=== PATIENT | female | born 1970 | race Caucasian/White ===

== ENCOUNTER 2018-01-30 21:37 | Inpatient (IN) | payer OTHER ==
[2018-01-30 23:34] LABS: ABNORMAL IP MESSAGE 1; HEMATOCRIT 36.2 % (37.0-47.0); HEMOGLOBIN 12.3 g/dl (12.0-16.0); MEAN CORPUSCULAR HEMOGLOBIN 31.8 pg (29.0-33.0); MEAN CORPUSCULAR VOLUME 93.5 fl (82.0-101.0); MEAN PLATELET VOLUME 12.6 fl (7.4-10.4); PLATELET COUNT 114 10^3/UL (140-415); RED BLOOD COUNT 3.87 10^6/ul (4.20-5.40); RED CELL DISTRIBUTION WIDTH 12.6 % (11.5-14.5)
[2018-01-30 23:34] LABS: WHITE BLOOD COUNT 8.2 10^3/ul (4.8-10.8)
[2018-01-30 23:37] LABS: ADD MAN DIFF? YES; POSITIVE DIFF @See below
[2018-01-30 23:40] LABS: ADD UMIC YES; UR ASCORBIC ACID NEGATIVE (NEGATIVE); UR BACTERIA FEW /HPF (NONE SEEN); UR BILIRUBIN (Dip) NEGATIVE (NEGATIVE); UR BLOOD (Dip) 1+ mg/dL (NEGATIVE); UR CLARITY CLOUDY (CLEAR); UR COLOR YELLOW (YELLOW); UR GLUCOSE (Dip) NEGATIVE (NEGATIVE); UR KETONES (Dip) NEGATIVE (NEGATIVE); UR LEUKOCYTE ESTERASE (Dip) NEGATIVE Leu/ul (NEGATIVE); UR NITRITE (Dip) NEGATIVE (NEGATIVE); UR RBC 0 /HPF (0-5); UR SPECIFIC GRAVITY (Dip) 1.016 (1.003-1.030); UR SQUAMOUS EPITHELIAL CELL MODERATE /HPF (FEW); UR TOTAL PROTEIN (Dip) 1+ mg/dl (NEGATIVE); UR UROBILINOGEN (Dip) NEGATIVE (NEGATIVE); UR WBC 10 /HPF (0-5)
[2018-01-30] MEDS: morphine 4 MG/ML VIAL IV (23:41)
[2018-01-30] MEDS: ONDANSETRON 4 MG INJ IV (23:41)
[2018-01-30] MEDS: PIPER-TAZO 3.375 GM IV (PMX) 100 ML IVPB (23:41)
[2018-01-30] MEDS: SODIUM CHLORIDE 0.9% 1L BAG IV* (23:43)
[2018-01-30 23:54] LABS: INR 1.05; PROTIME 13.8 Sec (11.9-14.9); PT RATIO 1.1
[2018-01-30 23:55] LABS: ALANINE AMINOTRANSFERASE 26 IU/L (13-69); ALBUMIN 3.5 g/dl (3.3-4.9); ALBUMIN/GLOBULIN RATIO 1.16; ALKALINE PHOSPHATASE 64 IU/L (42-121); ANION GAP 13 (8-16); ASPARTATE AMINO TRANSFERASE 18 IU/L (15-46); BILIRUBIN,INDIRECT 0.3 mg/dl (0-1.1); BILIRUBIN,TOTAL 0.3 mg/dl (0.2-1.3); BLOOD UREA NITROGEN 29 mg/dl (7-20); CALCIUM 8.6 mg/dl (8.4-10.2); CARBON DIOXIDE 24 mmol/L (21-31); CHLORIDE 100 mmol/L (97-110); CREATININE 0.98 mg/dl (0.44-1.00); GLUCOSE 130 mg/dl (70-220); POTASSIUM 3.5 mmol/L (3.5-5.1); SODIUM 133 mmol/L (135-144); TOTAL PROTEIN 6.5 g/dl (6.1-8.1)
[2018-01-30 23:55] LABS: LACTIC ACID 1.3 mmol/L (0.5-2.0)
[2018-01-31] MEDS: VANCOMYCIN 1 GM (PMX) 250 ML IVPB (00:04)
[2018-01-31 00:06] LABS: TROPONIN-I < 0.010 ng/ml (0.000-0.120)
[2018-01-31 00:52] LABS: BAND NEUTROPHILS #M 2.7 10^3/ul (0.0-0.6); BAND NEUTROPHILS % (M) 33 % (0-4); LYMPHOCYTES #M 0.4 10^3/ul (0.8-2.9); LYMPHOCYTES % (M) 5 % (15-51); METAMYELOCYTES #M 0.4 10^3/ul (0.0-0.0); METAMYELOCYTES %M 6 % (0-0); MONOCYTE #M 0.2 10^3/ul (0.3-0.9); MONOCYTES % (M) 3 % (0-11); PLATELET ESTIMATE DECREASED; SEG NEUT #M 4.6 10^3/ul (1.6-7.5); SEGMENTED NEUTROPHILS (M) % 53 % (39-77); SMUDGE%M 11 % (0-0)
[2018-01-31] MEDS ORDERED: ONDANSETRON 4 MG INJ IV (02:00)
[2018-01-31] MEDS ORDERED: NACL 0.9% 3 ML SYG IV (02:00)
[2018-01-31] MEDS ORDERED: ALBUTEROL/IPRATROPIUM (NEB) 3 ML AMP HHN (02:00)
[2018-01-31] MEDS: SOD CHLORIDE 0.9% 1,000 ML IV ×5 (02:53→22:31)
[2018-01-31] MEDS ORDERED: VANCOMYCIN IV PER PHARMACY XX (04:00)
[2018-01-31] MEDS: morphine 4 MG/ML VIAL IV (05:05)
[2018-01-31] MEDS: CEFEPIME 1GM/50 ML (PMX) 50 ML IVPB ×2 (05:06→20:11)
[2018-01-31] MEDS: HEPARIN 5,000 UNIT/0.5 ML VIAL SC ×2 (08:23→20:18)
[2018-01-31] MEDS: VANCOMYCIN 750 MG in SOD CHLORIDE 0.9% 150 ML IVPB (11:17)
[2018-02-01] MEDS: VANCOMYCIN 750 MG in SOD CHLORIDE 0.9% 150 ML IVPB ×2 (00:13→13:14)
[2018-02-01] MEDS: ACETAMINOPHEN 325 MG TAB PO (00:14)
[2018-02-01 07:25] LABS: ADD MAN DIFF? NO
[2018-02-01 07:35] LABS: WHITE BLOOD COUNT 5.7 10^3/ul (4.8-10.8)
[2018-02-01 07:35] LABS: BASOPHILS % 0.5 % (0.0-2.0); EOSINOPHILS # 0.1 10^3/ul (0.0-0.5); EOSINOPHILS % 1.9 % (0.0-7.0); HEMATOCRIT 29.3 % (37.0-47.0); HEMOGLOBIN 9.8 g/dl (12.0-16.0); LYMPHOCYTES # 0.8 10^3/ul (0.8-2.9); LYMPHOCYTES % 14.3 % (15.0-51.0); MEAN CORPUSCULAR HGB CONC 33.4 g/dl (32.0-37.0); MEAN CORPUSCULAR VOLUME 95.8 fl (82.0-101.0); MEAN PLATELET VOLUME 12.9 fl (7.4-10.4); MONOCYTE # 0.6 10^3/ul (0.3-0.9); MONOCYTES % 9.9 % (0.0-11.0); NEUTROPHIL # 4.1 10^3/ul (1.6-7.5); NEUTROPHILS % 72.7 % (39.0-77.0); PLATELET COUNT 119 10^3/UL (140-415); RED BLOOD COUNT 3.06 10^6/ul (4.20-5.40); RED CELL DISTRIBUTION WIDTH 13.2 % (11.5-14.5)
[2018-02-01 07:37] LABS: POSITIVE DIFF @See below
[2018-02-01 08:07] LABS: ALANINE AMINOTRANSFERASE 19 IU/L (13-69); ALBUMIN 2.6 g/dl (3.3-4.9); ALBUMIN/GLOBULIN RATIO 0.89; ALKALINE PHOSPHATASE 105 IU/L (42-121); ANION GAP 10 (8-16); ASPARTATE AMINO TRANSFERASE 17 IU/L (15-46); BILIRUBIN,INDIRECT 0.3 mg/dl (0-1.1); BILIRUBIN,TOTAL 0.3 mg/dl (0.2-1.3); BLOOD UREA NITROGEN 8 mg/dl (7-20); CARBON DIOXIDE 23 mmol/L (21-31); CHLORIDE 110 mmol/L (97-110); GLUCOSE 84 mg/dl (70-220); POTASSIUM 3.2 mmol/L (3.5-5.1); SODIUM 140 mmol/L (135-144); TOTAL PROTEIN 5.5 g/dl (6.1-8.1)
[2018-02-01] MEDS: SOD CHLORIDE 0.9% 1,000 ML IV (08:58)
[2018-02-01] MEDS: CEFEPIME 1GM/50 ML (PMX) 50 ML IVPB ×2 (08:58→21:04)
[2018-02-01] MEDS: HEPARIN 5,000 UNIT/0.5 ML VIAL SC ×2 (09:11→21:11)
[2018-02-01 12:34] LABS: VANCOMYCIN,TROUGH 5.6 ug/ml (10.0-20.0)
[2018-02-01] MEDS: POTASSIUM CHLORIDE 20 MEQ POWDER FOR ORAL SOLN PO (16:06)
[2018-02-01] MEDS: LACTOBACILLUS RHAMNOSUS CAP PO (21:04)
[2018-02-01] MEDS: VANCOMYCIN 1.25 GM in SOD CHLORIDE 0.9% 250 ML IVPB (22:45)
[2018-02-02] MEDS: ACETAMINOPHEN 325 MG TAB PO ×2 (03:53→19:35)
[2018-02-02 06:55] LABS: ADD MAN DIFF? NO
[2018-02-02 07:00] LABS: WHITE BLOOD COUNT 6.4 10^3/ul (4.8-10.8)
[2018-02-02 07:00] LABS: BASOPHILS % 0.5 % (0.0-2.0); EOSINOPHILS # 0.1 10^3/ul (0.0-0.5); EOSINOPHILS % 1.3 % (0.0-7.0); HEMATOCRIT 30.6 % (37.0-47.0); HEMOGLOBIN 10.2 g/dl (12.0-16.0); LYMPHOCYTES # 0.7 10^3/ul (0.8-2.9); LYMPHOCYTES % 11.6 % (15.0-51.0); MEAN CORPUSCULAR HEMOGLOBIN 31.2 pg (29.0-33.0); MEAN CORPUSCULAR HGB CONC 33.3 g/dl (32.0-37.0); MEAN CORPUSCULAR VOLUME 93.6 fl (82.0-101.0); MEAN PLATELET VOLUME 11.8 fl (7.4-10.4); MONOCYTE # 0.9 10^3/ul (0.3-0.9); MONOCYTES % 13.5 % (0.0-11.0); NEUTROPHIL # 4.6 10^3/ul (1.6-7.5); NEUTROPHILS % 71.8 % (39.0-77.0); PLATELET COUNT 138 10^3/UL (140-415); RED BLOOD COUNT 3.27 10^6/ul (4.20-5.40); RED CELL DISTRIBUTION WIDTH 13.1 % (11.5-14.5)
[2018-02-02 07:10] LABS: POSITIVE DIFF @See below
[2018-02-02 07:41] LABS: IRON 19 ug/dl (35-150)
[2018-02-02 07:51] LABS: % IRON SATURATION 7 % SAT (22-52); TOTAL IRON BINDING CAPACITY 277 ug/dl (241-421)
[2018-02-02 08:00] LABS: ALANINE AMINOTRANSFERASE 40 IU/L (13-69); ALBUMIN 2.7 g/dl (3.3-4.9); ALBUMIN/GLOBULIN RATIO 0.87; ALKALINE PHOSPHATASE 165 IU/L (42-121); ANION GAP 9 (8-16); ASPARTATE AMINO TRANSFERASE 44 IU/L (15-46); BILIRUBIN,INDIRECT 0.3 mg/dl (0-1.1); BILIRUBIN,TOTAL 0.3 mg/dl (0.2-1.3); BLOOD UREA NITROGEN 6 mg/dl (7-20); CALCIUM 8.3 mg/dl (8.4-10.2); CARBON DIOXIDE 26 mmol/L (21-31); CHLORIDE 106 mmol/L (97-110); GLUCOSE 112 mg/dl (70-220); POTASSIUM 3.2 mmol/L (3.5-5.1); SODIUM 138 mmol/L (135-144); TOTAL PROTEIN 5.8 g/dl (6.1-8.1)
[2018-02-02 08:21] LABS: FERRITIN 69.1 ng/ml (6.2-137.0)
[2018-02-02 08:33] LABS: ERYTHROCYTE SEDIMENTATION RATE 108 mm/Hr (0-20)
[2018-02-02 09:07] LABS: C-REACTIVE PROTEIN 21.1 mg/dl (0.0-0.9)
[2018-02-02] MEDS: LACTOBACILLUS RHAMNOSUS CAP PO ×2 (09:58→20:32)
[2018-02-02] MEDS: CEFEPIME 1GM/50 ML (PMX) 50 ML IVPB ×2 (09:58→20:32)
[2018-02-02] MEDS: HEPARIN 5,000 UNIT/0.5 ML VIAL SC ×2 (10:08→20:36)
[2018-02-02] MEDS: POTASSIUM CHLORIDE 20 MEQ POWDER FOR ORAL SOLN PO (10:45)
[2018-02-02] MEDS: VANCOMYCIN 1.25 GM in SOD CHLORIDE 0.9% 250 ML IVPB ×2 (12:13→23:23)
[2018-02-03] MEDS: ACETAMINOPHEN 325 MG TAB PO ×3 (05:04→19:53)
[2018-02-03 08:27] LABS: ADD MAN DIFF? NO
[2018-02-03] MEDS: POTASSIUM CHLORIDE 20 MEQ POWDER FOR ORAL SOLN PO (08:27)
[2018-02-03] MEDS: LACTOBACILLUS RHAMNOSUS CAP PO ×2 (08:27→19:54)
[2018-02-03] MEDS: CEFEPIME 1GM/50 ML (PMX) 50 ML IVPB ×2 (08:27→20:04)
[2018-02-03] MEDS: HEPARIN 5,000 UNIT/0.5 ML VIAL SC ×2 (08:33→20:17)
[2018-02-03 08:35] LABS: BASOPHILS % 0.7 % (0.0-2.0); EOSINOPHILS # 0.1 10^3/ul (0.0-0.5); EOSINOPHILS % 1.7 % (0.0-7.0); HEMATOCRIT 32.9 % (37.0-47.0); HEMOGLOBIN 10.9 g/dl (12.0-16.0); LYMPHOCYTES # 1.1 10^3/ul (0.8-2.9); LYMPHOCYTES % 17.8 % (15.0-51.0); MEAN CORPUSCULAR HEMOGLOBIN 31.9 pg (29.0-33.0); MEAN CORPUSCULAR HGB CONC 33.1 g/dl (32.0-37.0); MEAN CORPUSCULAR VOLUME 96.2 fl (82.0-101.0); MEAN PLATELET VOLUME 11.8 fl (7.4-10.4); MONOCYTE # 0.7 10^3/ul (0.3-0.9); MONOCYTES % 11.3 % (0.0-11.0); NEUTROPHIL # 3.9 10^3/ul (1.6-7.5); NEUTROPHILS % 65.1 % (39.0-77.0); PLATELET COUNT 178 10^3/UL (140-415); RED BLOOD COUNT 3.42 10^6/ul (4.20-5.40); RED CELL DISTRIBUTION WIDTH 13.2 % (11.5-14.5)
[2018-02-03 08:35] LABS: WHITE BLOOD COUNT 5.9 10^3/ul (4.8-10.8)
[2018-02-03 09:05] LABS: ANION GAP 7 (8-16); BLOOD UREA NITROGEN 5 mg/dl (7-20); CALCIUM 8.3 mg/dl (8.4-10.2); CARBON DIOXIDE 31 mmol/L (21-31); CHLORIDE 104 mmol/L (97-110); CREATININE 0.49 mg/dl (0.44-1.00); GLUCOSE 98 mg/dl (70-220); POTASSIUM 3.4 mmol/L (3.5-5.1); SODIUM 139 mmol/L (135-144)
[2018-02-03] MEDS ORDERED: morphine 2 MG INJ IV (11:00)
[2018-02-03 11:52] LABS: VANCOMYCIN,TROUGH 7.9 ug/ml (10.0-20.0)
[2018-02-03] MEDS: VANCOMYCIN 1.25 GM in SOD CHLORIDE 0.9% 250 ML IVPB (12:21)
[2018-02-03] MEDS: VANCOMYCIN 1 GM 250 ML IVPB (19:54)
[2018-02-04] MEDS: VANCOMYCIN 1 GM 250 ML IVPB ×2 (05:33→11:39)
[2018-02-04 07:09] LABS: ANION GAP 10 (8-16); BLOOD UREA NITROGEN 5 mg/dl (7-20); CALCIUM 8.4 mg/dl (8.4-10.2); CARBON DIOXIDE 28 mmol/L (21-31); CHLORIDE 104 mmol/L (97-110); CREATININE 0.49 mg/dl (0.44-1.00); GLUCOSE 99 mg/dl (70-220); POTASSIUM 3.7 mmol/L (3.5-5.1); SODIUM 138 mmol/L (135-144)
[2018-02-04] MEDS: ACETAMINOPHEN 325 MG TAB PO ×3 (07:49→19:40)
[2018-02-04] MEDS: CEFEPIME 1GM/50 ML (PMX) 50 ML IVPB (09:04)
[2018-02-04] MEDS: LACTOBACILLUS RHAMNOSUS CAP PO ×2 (09:05→20:50)
[2018-02-04] MEDS: POTASSIUM CHLORIDE 20 MEQ POWDER FOR ORAL SOLN PO (09:05)
[2018-02-04] MEDS: HEPARIN 5,000 UNIT/0.5 ML VIAL SC ×2 (09:06→20:51)
[2018-02-04] MEDS ORDERED: morphine LIQ (10 MG/5 ML) CUP PO (16:30)
[2018-02-04] MEDS: CEFTRIAXONE 2 GM/50 ML (PMX) 50 ML IVPB (17:45)
[2018-02-04] MEDS: HYDROCODONE/APAP (10/325) TAB PO (22:53)
[2018-02-05] MEDS: HYDROCODONE/APAP (10/325) TAB PO ×4 (04:42→19:30)
[2018-02-05 06:12] LABS: WHITE BLOOD COUNT 10.9 10^3/ul (4.8-10.8)
[2018-02-05 06:12] LABS: ABNORMAL IP MESSAGE 1; HEMATOCRIT 32.1 % (37.0-47.0); HEMOGLOBIN 10.6 g/dl (12.0-16.0); MEAN CORPUSCULAR HEMOGLOBIN 31.5 pg (29.0-33.0); MEAN CORPUSCULAR VOLUME 95.3 fl (82.0-101.0); MEAN PLATELET VOLUME 10.4 fl (7.4-10.4); PLATELET COUNT 279 10^3/UL (140-415); RED BLOOD COUNT 3.37 10^6/ul (4.20-5.40); RED CELL DISTRIBUTION WIDTH 13.2 % (11.5-14.5)
[2018-02-05 06:14] LABS: ADD MAN DIFF? YES; POSITIVE DIFF @See below
[2018-02-05] MEDS: LACTOBACILLUS RHAMNOSUS CAP PO ×2 (09:29→20:44)
[2018-02-05] MEDS: POTASSIUM CHLORIDE 20 MEQ POWDER FOR ORAL SOLN PO (09:29)
[2018-02-05] MEDS: HEPARIN 5,000 UNIT/0.5 ML VIAL SC ×2 (09:47→20:49)
[2018-02-05 10:13] LABS: EOSINOPHILS % (M) 1 % (0-7); PLATELET ESTIMATE NORMAL; REACTIVE LYMPHOCYTES #M 0.1 10^3/ul (0.0-0.0); REACTIVE LYMPHOCYTES% (M) 1 % (0-0)
[2018-02-05 13:03] LABS: BAND NEUTROPHILS % (M) 10 % (0-4); LYMPHOCYTES #M 1.9 10^3/ul (0.8-2.9); LYMPHOCYTES % (M) 18 % (15-51); METAMYELOCYTES #M 0.2 10^3/ul (0.0-0.0); METAMYELOCYTES %M 2 % (0-0); MONOCYTE #M 0.4 10^3/ul (0.3-0.9); MONOCYTES % (M) 4 % (0-11); MYELOCYTES #M 0.1 10^3/ul (0.0-0.0); MYELOCYTES % (M) 1 % (0-0); POIKILOCYTOSIS 1+ (0-0); POLYCHROMASIA 1+ (0-0); SEG NEUT #M 7.2 10^3/ul (1.6-7.5); SEGMENTED NEUTROPHILS (M) % 65 % (39-77); SMUDGE%M 2 % (0-0)
[2018-02-05] MEDS: CEFTRIAXONE 2 GM/50 ML (PMX) 50 ML IVPB (15:28)
[2018-02-06] MEDS: HYDROCODONE/APAP (10/325) TAB PO ×4 (01:00→22:17)
[2018-02-06 05:49] LABS: ADD MAN DIFF? NO
[2018-02-06 05:51] LABS: BASOPHIL # 0.1 10^3/ul (0.0-0.1); BASOPHILS % 0.7 % (0.0-2.0); EOSINOPHILS # 0.2 10^3/ul (0.0-0.5); EOSINOPHILS % 1.4 % (0.0-7.0); HEMATOCRIT 32.7 % (37.0-47.0); LYMPHOCYTES # 1.4 10^3/ul (0.8-2.9); LYMPHOCYTES % 13.8 % (15.0-51.0); MEAN CORPUSCULAR HEMOGLOBIN 32.4 pg (29.0-33.0); MEAN CORPUSCULAR HGB CONC 33.6 g/dl (32.0-37.0); MEAN CORPUSCULAR VOLUME 96.5 fl (82.0-101.0); MEAN PLATELET VOLUME 10.3 fl (7.4-10.4); MONOCYTE # 0.5 10^3/ul (0.3-0.9); MONOCYTES % 5.1 % (0.0-11.0); NEUTROPHIL # 7.8 10^3/ul (1.6-7.5); NEUTROPHILS % 74.2 % (39.0-77.0); PLATELET COUNT 335 10^3/UL (140-415); RED BLOOD COUNT 3.39 10^6/ul (4.20-5.40); RED CELL DISTRIBUTION WIDTH 13.2 % (11.5-14.5)
[2018-02-06 05:51] LABS: WHITE BLOOD COUNT 10.5 10^3/ul (4.8-10.8)
[2018-02-06] MEDS: POTASSIUM CHLORIDE 20 MEQ POWDER FOR ORAL SOLN PO (08:18)
[2018-02-06] MEDS: LACTOBACILLUS RHAMNOSUS CAP PO ×2 (08:18→20:38)
[2018-02-06] MEDS: HEPARIN 5,000 UNIT/0.5 ML VIAL SC ×2 (08:22→20:41)
[2018-02-06] MEDS: CEFTRIAXONE 2 GM/50 ML (PMX) 50 ML IVPB (15:45)
[2018-02-06] MEDS ORDERED: BISACODYL 10 MG SUPP PR (17:30)
[2018-02-07] MEDS: HYDROCODONE/APAP (10/325) TAB PO ×3 (03:38→17:29)
[2018-02-07 05:48] LABS: WHITE BLOOD COUNT 10.2 10^3/ul (4.8-10.8)
[2018-02-07 05:48] LABS: ADD MAN DIFF? NO; BASOPHIL # 0.1 10^3/ul (0.0-0.1); BASOPHILS % 0.9 % (0.0-2.0); EOSINOPHILS # 0.1 10^3/ul (0.0-0.5); EOSINOPHILS % 1.4 % (0.0-7.0); HEMATOCRIT 33.1 % (37.0-47.0); HEMOGLOBIN 11.3 g/dl (12.0-16.0); LYMPHOCYTES # 1.3 10^3/ul (0.8-2.9); LYMPHOCYTES % 12.9 % (15.0-51.0); MEAN CORPUSCULAR HEMOGLOBIN 32.8 pg (29.0-33.0); MEAN CORPUSCULAR HGB CONC 34.1 g/dl (32.0-37.0); MEAN CORPUSCULAR VOLUME 96.2 fl (82.0-101.0); MEAN PLATELET VOLUME 9.9 fl (7.4-10.4); MONOCYTE # 0.5 10^3/ul (0.3-0.9); MONOCYTES % 4.9 % (0.0-11.0); NEUTROPHIL # 7.7 10^3/ul (1.6-7.5); NEUTROPHILS % 75.7 % (39.0-77.0); PLATELET COUNT 389 10^3/UL (140-415); RED BLOOD COUNT 3.44 10^6/ul (4.20-5.40)
[2018-02-07 06:10] LABS: ANION GAP 12 (8-16); BLOOD UREA NITROGEN 10 mg/dl (7-20); CARBON DIOXIDE 29 mmol/L (21-31); CHLORIDE 98 mmol/L (97-110); CREATININE 0.57 mg/dl (0.44-1.00); GLUCOSE 114 mg/dl (70-220); POTASSIUM 4.4 mmol/L (3.5-5.1); SODIUM 135 mmol/L (135-144)
[2018-02-07] MEDS: DOCUSATE SODIUM 100 MG CAP PO (08:08)
[2018-02-07] MEDS: LACTOBACILLUS RHAMNOSUS CAP PO ×2 (08:09→20:33)
[2018-02-07] MEDS: BISACODYL (EC) 5 MG TAB PO (08:09)
[2018-02-07] MEDS: POTASSIUM CHLORIDE 20 MEQ POWDER FOR ORAL SOLN PO (08:09)
[2018-02-07] MEDS: HEPARIN 5,000 UNIT/0.5 ML VIAL SC ×2 (08:09→20:38)
[2018-02-07] MEDS: CEFTRIAXONE 2 GM/50 ML (PMX) 50 ML IVPB (16:25)
[2018-02-08] MEDS: ACETAMINOPHEN 325 MG TAB PO (00:22)
[2018-02-08] MEDS: HYDROCODONE/APAP (10/325) TAB PO ×3 (05:35→22:17)
[2018-02-08 05:37] LABS: ADD MAN DIFF? NO
[2018-02-08 05:42] LABS: BASOPHIL # 0.1 10^3/ul (0.0-0.1); BASOPHILS % 0.7 % (0.0-2.0); EOSINOPHILS # 0.1 10^3/ul (0.0-0.5); EOSINOPHILS % 1.1 % (0.0-7.0); HEMATOCRIT 34.2 % (37.0-47.0); HEMOGLOBIN 11.3 g/dl (12.0-16.0); LYMPHOCYTES # 1.6 10^3/ul (0.8-2.9); LYMPHOCYTES % 22.5 % (15.0-51.0); MEAN CORPUSCULAR VOLUME 96.9 fl (82.0-101.0); MEAN PLATELET VOLUME 9.8 fl (7.4-10.4); MONOCYTE # 0.5 10^3/ul (0.3-0.9); MONOCYTES % 6.6 % (0.0-11.0); NEUTROPHIL # 4.6 10^3/ul (1.6-7.5); NEUTROPHILS % 65.2 % (39.0-77.0); PLATELET COUNT 480 10^3/UL (140-415); RED BLOOD COUNT 3.53 10^6/ul (4.20-5.40); RED CELL DISTRIBUTION WIDTH 13.1 % (11.5-14.5)
[2018-02-08 06:15] LABS: ANION GAP 12 (8-16); BLOOD UREA NITROGEN 11 mg/dl (7-20); CALCIUM 9.2 mg/dl (8.4-10.2); CARBON DIOXIDE 32 mmol/L (21-31); CHLORIDE 97 mmol/L (97-110); CREATININE 0.61 mg/dl (0.44-1.00); GLUCOSE 101 mg/dl (70-220); POTASSIUM 4.3 mmol/L (3.5-5.1); SODIUM 137 mmol/L (135-144)
[2018-02-08] MEDS: POTASSIUM CHLORIDE 20 MEQ POWDER FOR ORAL SOLN PO (08:19)
[2018-02-08] MEDS: LACTOBACILLUS RHAMNOSUS CAP PO ×2 (08:20→21:00)
[2018-02-08] MEDS: HEPARIN 5,000 UNIT/0.5 ML VIAL SC ×2 (08:29→21:35)
[2018-02-08] MEDS: CEFTRIAXONE 2 GM/50 ML (PMX) 50 ML IVPB (16:33)
[2018-02-09 05:43] LABS: ADD MAN DIFF? NO
[2018-02-09 05:58] LABS: BASOPHIL # 0.1 10^3/ul (0.0-0.1); BASOPHILS % 1.1 % (0.0-2.0); EOSINOPHILS # 0.1 10^3/ul (0.0-0.5); EOSINOPHILS % 1.2 % (0.0-7.0); HEMATOCRIT 32.7 % (37.0-47.0); HEMOGLOBIN 10.9 g/dl (12.0-16.0); LYMPHOCYTES # 1.8 10^3/ul (0.8-2.9); LYMPHOCYTES % 21.4 % (15.0-51.0); MEAN CORPUSCULAR HEMOGLOBIN 32.2 pg (29.0-33.0); MEAN CORPUSCULAR HGB CONC 33.3 g/dl (32.0-37.0); MEAN CORPUSCULAR VOLUME 96.7 fl (82.0-101.0); MEAN PLATELET VOLUME 9.9 fl (7.4-10.4); MONOCYTE # 0.6 10^3/ul (0.3-0.9); MONOCYTES % 7.3 % (0.0-11.0); NEUTROPHIL # 5.5 10^3/ul (1.6-7.5); PLATELET COUNT 534 10^3/UL (140-415); RED BLOOD COUNT 3.38 10^6/ul (4.20-5.40); RED CELL DISTRIBUTION WIDTH 13.1 % (11.5-14.5)
[2018-02-09 05:58] LABS: WHITE BLOOD COUNT 8.2 10^3/ul (4.8-10.8)
[2018-02-09] MEDS: HYDROCODONE/APAP (10/325) TAB PO ×3 (08:16→22:12)
[2018-02-09] MEDS: POTASSIUM CHLORIDE 20 MEQ POWDER FOR ORAL SOLN PO (08:17)
[2018-02-09] MEDS: HEPARIN 5,000 UNIT/0.5 ML VIAL SC ×2 (12:23→21:03)
[2018-02-09] MEDS: LACTOBACILLUS RHAMNOSUS CAP PO ×2 (13:17→20:56)
[2018-02-09] MEDS ORDERED: AMOXICILLIN/CLAV 875 MG TAB PO (21:00)
[2018-02-09] MEDS: CEFTRIAXONE 1 GM/50 ML (PMX) 50 ML IVPB (22:04)
[2018-02-10 06:32] LABS: ADD MAN DIFF? NO
[2018-02-10 06:35] LABS: BASOPHIL # 0.1 10^3/ul (0.0-0.1); EOSINOPHILS # 0.1 10^3/ul (0.0-0.5); EOSINOPHILS % 1.3 % (0.0-7.0); HEMATOCRIT 34.1 % (37.0-47.0); HEMOGLOBIN 11.1 g/dl (12.0-16.0); LYMPHOCYTES # 1.3 10^3/ul (0.8-2.9); LYMPHOCYTES % 14.1 % (15.0-51.0); MEAN CORPUSCULAR HGB CONC 32.6 g/dl (32.0-37.0); MEAN CORPUSCULAR VOLUME 95.3 fl (82.0-101.0); MEAN PLATELET VOLUME 9.7 fl (7.4-10.4); MONOCYTE # 0.7 10^3/ul (0.3-0.9); NEUTROPHIL # 7.1 10^3/ul (1.6-7.5); NEUTROPHILS % 75.3 % (39.0-77.0); PLATELET COUNT 597 10^3/UL (140-415); RED BLOOD COUNT 3.58 10^6/ul (4.20-5.40); RED CELL DISTRIBUTION WIDTH 12.8 % (11.5-14.5)
[2018-02-10 06:35] LABS: WHITE BLOOD COUNT 9.4 10^3/ul (4.8-10.8)
[2018-02-10] MEDS: HYDROCODONE/APAP (10/325) TAB PO (08:59)
[2018-02-10] MEDS: LACTOBACILLUS RHAMNOSUS CAP PO ×2 (08:59→21:17)
[2018-02-10] MEDS: POTASSIUM CHLORIDE 20 MEQ POWDER FOR ORAL SOLN PO (09:00)
[2018-02-10] MEDS: HEPARIN 5,000 UNIT/0.5 ML VIAL SC ×2 (09:04→21:20)
[2018-02-10] MEDS: CEFTRIAXONE 1 GM/50 ML (PMX) 50 ML IVPB (21:26)
[2018-02-11] MEDS: HYDROCODONE/APAP (10/325) TAB PO (00:57)
[2018-02-11] MEDS: HEPARIN 5,000 UNIT/0.5 ML VIAL SC ×2 (09:00→21:12)
[2018-02-11] MEDS: LACTOBACILLUS RHAMNOSUS CAP PO ×2 (09:00→21:08)
[2018-02-11 13:55] LABS: ADD MAN DIFF? NO
[2018-02-11 13:58] LABS: BASOPHIL # 0.1 10^3/ul (0.0-0.1); EOSINOPHILS # 0.1 10^3/ul (0.0-0.5); EOSINOPHILS % 1.3 % (0.0-7.0); LYMPHOCYTES # 1.2 10^3/ul (0.8-2.9); LYMPHOCYTES % 17.4 % (15.0-51.0); MEAN CORPUSCULAR HEMOGLOBIN 32.3 pg (29.0-33.0); MEAN CORPUSCULAR HGB CONC 33.3 g/dl (32.0-37.0); MEAN CORPUSCULAR VOLUME 96.8 fl (82.0-101.0); MEAN PLATELET VOLUME 9.7 fl (7.4-10.4); MONOCYTE # 0.5 10^3/ul (0.3-0.9); MONOCYTES % 6.9 % (0.0-11.0); NEUTROPHIL # 5.1 10^3/ul (1.6-7.5); NEUTROPHILS % 72.5 % (39.0-77.0); PLATELET COUNT 666 10^3/UL (140-415); RED BLOOD COUNT 3.41 10^6/ul (4.20-5.40); RED CELL DISTRIBUTION WIDTH 12.8 % (11.5-14.5)
[2018-02-11] MEDS ORDERED: LABETALOL HCL 20MG INJ IV (17:30)
[2018-02-11] MEDS ORDERED: ONDANSETRON 4 MG INJ IV (17:30)
[2018-02-11] MEDS ORDERED: HYDROmorphONE 1 MG/5 ML IV SYRINGE IV ×3 (17:30)
[2018-02-11] MEDS ORDERED: FENTAnyl 50 MCG/ML VIAL IV ×2 (17:30)
[2018-02-11] MEDS ORDERED: PROCHLORPERAZINE 10 MG INJ IV (17:30)
[2018-02-11] MEDS ORDERED: MEPERIDINE 25 MG INJ IV (17:30)
[2018-02-11] MEDS ORDERED: DIPHENHYDRAMINE 50 MG INJ IV (17:30)
[2018-02-11] MEDS ORDERED: hydrALAzine 20 MG INJ IV (17:30)
[2018-02-11] MEDS ORDERED: MIDAZOLAM 1 MG/ML 2 ML INJ (17:52)
[2018-02-11] MEDS ORDERED: PROPOFOL 20 ML (17:52)
[2018-02-11] MEDS ORDERED: FENTAnyl 50 MCG/ML VIAL (17:52)
[2018-02-11] MEDS ORDERED: LIDOCAINE 2% (SDV) 5 ML INJ (17:52)
[2018-02-11] MEDS ORDERED: PHENYLephrine (100 MCG/ML) 5ML SYG (18:06)
[2018-02-11] MEDS ORDERED: DEXAMETHASONE 4 MG/ML 1 ML INJ (18:15)
[2018-02-11] MEDS ORDERED: ONDANSETRON 4 MG INJ (18:15)
[2018-02-11] MEDS ORDERED: FAMOTIDINE 20 MG INJ (18:16)
[2018-02-11] MEDS: POLYMYXIN B 500000 UNIT INJ (18:39)
[2018-02-11] MEDS: BACITRACIN 50000 UNITS INJ (18:39)
[2018-02-11] MEDS ORDERED: ACETAMINOPHEN 1000MG/100ML IV 100 ML (18:40)
[2018-02-11] MEDS ORDERED: morphine 2 MG INJ IV (19:00)
[2018-02-11] MEDS: FENTAnyl 50 MCG/ML VIAL IV ×2 (19:13→19:22)
[2018-02-11] MEDS: CEFTRIAXONE 1 GM/50 ML (PMX) 50 ML IVPB (21:13)
[2018-02-11] MEDS: POTASSIUM CHLORIDE 20 MEQ POWDER FOR ORAL SOLN PO (21:17)
[2018-02-12] MEDS: HYDROCODONE/APAP (5/325) TAB PO (00:16)
[2018-02-12] MEDS: HYDROCODONE/APAP (10/325) TAB PO (06:07)
[2018-02-12 08:10] LABS: ANION GAP 12 (8-16); BLOOD UREA NITROGEN 11 mg/dl (7-20); CALCIUM 9.5 mg/dl (8.4-10.2); CARBON DIOXIDE 30 mmol/L (21-31); CHLORIDE 98 mmol/L (97-110); CREATININE 0.57 mg/dl (0.44-1.00); GLUCOSE 97 mg/dl (70-220); POTASSIUM 4.3 mmol/L (3.5-5.1); SODIUM 136 mmol/L (135-144)
[2018-02-12] MEDS: LACTOBACILLUS RHAMNOSUS CAP PO ×2 (08:58→21:33)
[2018-02-12] MEDS: POTASSIUM CHLORIDE 20 MEQ POWDER FOR ORAL SOLN PO (08:59)
[2018-02-12] MEDS ORDERED: ENOXAPARIN 40 MG/0.4 ML SYG SC (09:00)
[2018-02-12] MEDS: HEPARIN 5,000 UNIT/0.5 ML VIAL SC ×2 (10:07→21:35)
[2018-02-12] MEDS: CEFTRIAXONE 1 GM/50 ML (PMX) 50 ML IVPB (21:36)
[2018-02-13] MEDS: LACTOBACILLUS RHAMNOSUS CAP PO ×2 (09:33→20:26)
[2018-02-13] MEDS: POTASSIUM CHLORIDE 20 MEQ POWDER FOR ORAL SOLN PO (09:33)
[2018-02-13] MEDS: HEPARIN 5,000 UNIT/0.5 ML VIAL SC ×2 (09:34→20:28)
[2018-02-13] MEDS: CEFTRIAXONE 1 GM/50 ML (PMX) 50 ML IVPB (20:26)
[2018-02-14] MEDS: HYDROCODONE/APAP (5/325) TAB PO (01:59)
[2018-02-14 06:38] LABS: ADD MAN DIFF? NO
[2018-02-14 06:47] LABS: BASOPHIL # 0.2 10^3/ul (0.0-0.1); BASOPHILS % 3.8 % (0.0-2.0); EOSINOPHILS # 0.1 10^3/ul (0.0-0.5); EOSINOPHILS % 2.9 % (0.0-7.0); HEMATOCRIT 30.9 % (37.0-47.0); LYMPHOCYTES # 1.8 10^3/ul (0.8-2.9); LYMPHOCYTES % 40.7 % (15.0-51.0); MEAN CORPUSCULAR HEMOGLOBIN 31.2 pg (29.0-33.0); MEAN CORPUSCULAR HGB CONC 32.4 g/dl (32.0-37.0); MEAN CORPUSCULAR VOLUME 96.3 fl (82.0-101.0); MEAN PLATELET VOLUME 9.7 fl (7.4-10.4); MONOCYTE # 0.3 10^3/ul (0.3-0.9); MONOCYTES % 7.4 % (0.0-11.0); NEUTROPHILS % 43.9 % (39.0-77.0); RED BLOOD COUNT 3.21 10^6/ul (4.20-5.40); RED CELL DISTRIBUTION WIDTH 12.7 % (11.5-14.5)
[2018-02-14 06:47] LABS: WHITE BLOOD COUNT 4.5 10^3/ul (4.8-10.8)
[2018-02-14 06:53] LABS: PLATELET COUNT 710 10^3/UL (140-415)
[2018-02-14 06:57] LABS: INR 0.96; PROTIME 12.9 Sec (11.9-14.9)
[2018-02-14 06:58] LABS: PARTIAL THROMBOPLASTIN TIME 28.3 Sec (25.0-35.0)
[2018-02-14 07:26] LABS: ALANINE AMINOTRANSFERASE 32 IU/L (13-69); ALBUMIN 3.8 g/dl (3.3-4.9); ALBUMIN/GLOBULIN RATIO 1.02; ALKALINE PHOSPHATASE 175 IU/L (42-121); ANION GAP 13 (8-16); ASPARTATE AMINO TRANSFERASE 27 IU/L (15-46); BILIRUBIN,INDIRECT 0.2 mg/dl (0-1.1); BILIRUBIN,TOTAL 0.2 mg/dl (0.2-1.3); BLOOD UREA NITROGEN 15 mg/dl (7-20); CALCIUM 9.3 mg/dl (8.4-10.2); CARBON DIOXIDE 29 mmol/L (21-31); CHLORIDE 100 mmol/L (97-110); CREATININE 0.64 mg/dl (0.44-1.00); GLUCOSE 95 mg/dl (70-220); POTASSIUM 4.4 mmol/L (3.5-5.1); SODIUM 138 mmol/L (135-144); TOTAL PROTEIN 7.5 g/dl (6.1-8.1)
[2018-02-14] MEDS: POTASSIUM CHLORIDE 20 MEQ POWDER FOR ORAL SOLN PO (08:08)
[2018-02-14] MEDS: HEPARIN 5,000 UNIT/0.5 ML VIAL SC (08:10)
[2018-02-14] MEDS: LACTOBACILLUS RHAMNOSUS CAP PO (09:54)
[2018-02-14] MEDS ORDERED: morphine LIQ (10 MG/5 ML) CUP PO (13:00)
[2018-02-21 14:04] LABS: PROCALCITONIN 0.36 ng/mL (<0.10); PROCALCITONIN 0.93 ng/mL (<0.10)
== END 2018-02-14 14:43 | disposition home or self-care (01) | DRG 501 ==
LOC: MS2 02-05 16:50 → 2NE 02-09 14:03 → TEL 01-31 03:24 → E/R 21:37 → TEL 01-31 00:42
PROC: 0MBN0ZZ Excision of Right Knee Bursa and Ligament, Open Approach (ICD-10-PCS; principal; 2018-02-11 16:30)
PROC: 0M9N0ZX Drainage of Right Knee Bursa and Ligament, Open Approach, Diagnostic (ICD-10-PCS; 2018-02-11 16:30)
DX: M70.41 Prepatellar bursitis, right knee (principal); L03.115 Cellulitis of right lower limb; R65.10 Systemic inflammatory response syndrome (SIRS) of non-infectious origin without acute organ dysfunction; I95.9 Hypotension, unspecified; D63.8 Anemia in other chronic diseases classified elsewhere; R60.0 Localized edema; B95.0 Streptococcus, group A, as the cause of diseases classified elsewhere; R73.9 Hyperglycemia, unspecified
CPT/HCPCS: 36415; 73721; 80048; 80053; 80202; 81001; 82533; 82728; 83036; 83540; 83605; 83735; 84145; 84443; 84484; 84703; 85025; 85610; 85651; 85730; 86140; 87040; 87070; 87075; 87086; 87102; 93971; 96374; 96375; 97161; 99285-25